=== PATIENT | male | born 1970 | race Caucasian/White ===

== ENCOUNTER 2025-04-22 06:20 | Day surgery (SDC) | payer OTHER, SELFPAY | END 2025-04-22 12:06 | disposition home or self-care (01) | LOC: GI 06:20 | PROVIDERS: ATTENDING PHYSICIAN Internal Medicine Gastroenterology | DX: Z12.11 Encounter for screening for malignant neoplasm of colon (principal); K51.00 Ulcerative (chronic) pancolitis without complications; K64.8 Other hemorrhoids | CPT/HCPCS: 45380; 88305 ==